=== PATIENT | male | born 1950 | race African-American/Black ===

== ENCOUNTER 2020-06-26 08:22 | Outpatient (REF) | payer MEDICARE, SELFPAY ==
[2020-06-26 09:35] LABS: INTERNATIONAL NORM RATIO 1.7 (0.9-1.1); Prothrombin Time 20.2 SEC (10.8-13.0)
== END 2020-06-26 08:23 | disposition home or self-care (01) ==
LOC: HO.MMNH2L 08:22
PROVIDERS: Visit Provider Family Medicine
DX: I48.0 Paroxysmal atrial fibrillation (principal)
CPT/HCPCS: 36415; 85610